=== PATIENT | male | born 1945 | race Caucasian/White ===

== ENCOUNTER 2021-04-17 10:41 | Day surgery (SDC) | payer OTHER, MEDICARE ==
[2021-04-15 15:56] VITALS: BMI 28.7
[2021-04-17] MEDS ORDERED: PROMETHAZINE HCL 25 MG/1 ML VIAL IVPUSH PRN (13:09)
[2021-04-17] MEDS ORDERED: oxyCODONE HCL 5 MG TABLET PO PRN (13:09)
[2021-04-17] MEDS ORDERED: ONDANSETRON 4 MG/2 ML VIAL IVPUSH PRN (13:09)
[2021-04-17] MEDS ORDERED: LACTATED RINGERS SOLUTION 1,000 ML IV SCH (13:15)
[2021-04-17] MEDS ORDERED: BUPIVACAINE HCL/PF 0.25% (2.5MG/ML) 10 ML VIAL ONE (13:18)
[2021-04-17] MEDS ORDERED: PROPOFOL 20 ML ONE (13:25)
[2021-04-17] MEDS ORDERED: MIDAZOLAM HCL 2 MG/2 ML SINGLE DOSE VIAL ONE (13:25)
[2021-04-17 15:35] VITALS: TEMP 97.7
[2021-04-17 15:58] VITALS: BP 142/70; PULSE 85
== END 2021-04-17 16:35 | disposition home or self-care (01) ==
LOC: FASU 10:41
PROVIDERS: ATTEND Orthopaedic Surgery Sports Medicine
PROC: 0SBC4ZZ Excision of Right Knee Joint, Percutaneous Endoscopic Approach (ICD-10-PCS; principal; 2021-04-17 13:58)
DX: S83.241A Other tear of medial meniscus, current injury, right knee, initial encounter (principal); X58.XXXA Exposure to other specified factors, initial encounter; Y93.9 Activity, unspecified; Y92.9 Unspecified place or not applicable
CPT/HCPCS: 94760